=== PATIENT | female | born 1960 | race African-American/Black ===

== ENCOUNTER 2020-08-15 12:41 | Emergency (ER) | payer OTHER ==
[~2020-08-15] VITALS: Ht 160 cm; Wt 64.4 kg
[2020-08-15] MEDS ORDERED: NORCO5 PO ×2 (15:21→15:41)
[2020-08-15] MEDS ORDERED: CEPHALEXIN500 MG PO ×2 (15:21→15:41)
[2020-08-15 16:09] VITALS: BP 142/80
== END 2020-08-15 16:09 | disposition home or self-care (01) ==
LOC: ER 12:41
DX: S81.811A Laceration without foreign body, right lower leg, initial encounter (principal); E11.9 Type 2 diabetes mellitus without complications; M06.9 Rheumatoid arthritis, unspecified; W22.8XXA Striking against or struck by other objects, initial encounter; Y93.89 Activity, other specified; Y92.090 Kitchen in other non-institutional residence as the place of occurrence of the external cause; Y99.9 Unspecified external cause status